=== PATIENT | female | born 1985 | race Caucasian/White ===

== ENCOUNTER 2020-07-25 10:28 | Emergency (ER) | payer MEDICAID ==
[2020-07-25] MEDS ORDERED: Ondansetron 4 MG/2 ML SDV IVPUSH ONE (10:57)
[2020-07-25] MEDS ORDERED: Sodium Chloride 0.9% 10 ML Syringe FLUSH PRN (10:57)
[2020-07-25] MEDS ORDERED: LORazepam 2 MG/ML SDV IVPUSH ONE (10:58)
[2020-07-25] MEDS ORDERED: HYDROmorphone 0.5 MG/0.5 ML Syringe IVPUSH ONE ×2 (10:58→12:23)
--- NOTE | 2020-07-25 12:27 | US ---
Pelvic ultrasound: Multiple real-time images were obtained transvaginally. Comparison: No prior pelvic imaging is available. Uterus is anteverted. Several minimal uterine calcifications are seen. Endometrial thickness is normal at 4 mm. Ovaries show no cysts or solid abnormality. No free fluid is seen. Measurements: Right ovary: 2.9 x 1.8 x 1.9 cm Left ovary: 3.2 x 1.4 x 1.7 cm Uterus: Length 7.4 cm, AP height 3.6 cm, transverse width 4.7 cm Impression: 1. Minimal calcifications within the uterus which are felt to be incidental. 2. Nothing acute is seen on pelvic ultrasound study. Diagnostic code #2
--- NOTE | 2020-07-25 12:45 | EDM.PDOC ---
ED HPI GENERAL MEDICAL PROBLEM - General Chief Complaint: Abdominal Pain Stated Complaint: LOWER ABD PAIN/POST SURGERY 2WEEKS Time Seen by Provider: 07/25/20 10:49 Source of Information: Reports: Patient History Limitations: Reports: No Limitations - History of Present Illness INITIAL COMMENTS - FREE TEXT/NARRATIVE: Patient is a 35-year-old female presenting to the emergency department with complaints of lower abdominal and pelvic pain. She states she had exploratory surgery for chronic pelvic discomfort on 04 July. Last week Friday, she states she picked up her dog and he kicked her in the abdomen and she has been experiencing worsened pain since that time. She describes pain to her umbilical region which is where she has an incision that radiates down into her pelvic area. She is also developed some nausea with a couple episodes of vomiting as well as mild diarrhea since Friday of this week. She is unsure if her MANAGER PHOTO, Dr. Garcia, had found anything with the surgery as she does not have a follow-up until next Friday. She is also concerned with her chronic anxiety. She states she is normally takes clonazepam 0.5 mg, however she left this in [place] and will not be going back there until next week for her appointment. She denies any fever or chills. She did recently start her menstrual period. She denies any vaginal bleeding that occurred in correspondence with when she was kicked in the abdomen. Lower Abdominal Pain Score (Numeric/FACES): 10 - Related Data Allergies Allergy/AdvReac Type Severity Reaction Status Date / Time diphenhydramine Allergy Tremors Verified 04/18/16 11:28 SENIOR GRANTS OFFICER [From Benadryl] ketorolac [From Toradol] Allergy Vomiting Verified 07/25/20 11:06 methotrexate Allergy Cannot Verified 07/25/20 10:43 Remember Penicillins Allergy Hives Verified 04/18/16 11:28 SENIOR GRANTS OFFICER anti inflammatory drugs Allergy Diarrhea Uncoded 04/18/16 11:28 SENIOR GRANTS OFFICER lobster Allergy Swelling Uncoded 04/18/16 11:28 SENIOR GRANTS OFFICER Home Meds: Home Meds Acetaminophen/HYDROcodone [Rifton 325-5 MG] 1 tab PO Q4H PRN #10 tablet 07/25/20 [Rx] oxyCODONE 1 tab PO Q6H PRN 07/25/20 [History] Past Medical History HEENT History: Reports: None Cardiovascular History: Reports: None Respiratory History: Reports: None Gastrointestinal History: Reports: None Genitourinary History: Reports: None MANAGER PHOTO History: Reports: Polycystic Ovaries, Musculoskeletal History: Reports: None Neurological History: Reports: None Psychiatric History: Reports: Anxiety, Depression Endocrine/Metabolic History: Reports: None Hematologic History: Reports: None Oncologic (Cancer) History: Reports: None Dermatologic History: Reports: None - Infectious Disease History Infectious Disease History: Reports: None - Past Surgical History HEENT Surgical History: Reports: Oral Surgery, Tonsillectomy Female Surgical History: Reports: Section, D&C Social & Family History - Family History Family Medical History: No Pertinent Family History Musculoskeletal: Reports: RA - Tobacco Use Tobacco Use Status *Q: Current Every Day Tobacco User Years of Tobacco use: 10 Packs/Tins Daily: 0.3 - Caffeine Use Caffeine Use: Reports: None - Recreational Drug Use Recreational Drug Use: No ED ROS GENERAL - Review of Systems Review Of Systems: See Below Constitutional: Denies: Fever, Chills HEENT: Reports: No Symptoms Respiratory: Reports: No Symptoms. Denies: Shortness of Breath, Cough Cardiovascular: Reports: No Symptoms Endocrine: Reports: No Symptoms GI/Abdominal: Reports: Abdominal Pain (suprapubic and umbilical), Diarrhea, Naus ea, Vomiting : Reports: No Symptoms. Denies: Dysuria, Irregular Menses Musculoskeletal: Reports: No Symptoms Skin: Reports: No Symptoms Neurological: Reports: No Symptoms Psychiatric: Reports: No Symptoms Hematologic/Lymphatic: Reports: No Symptoms Immunologic: Reports: No Symptoms ED EXAM, RENAL/ - Physical Exam Exam: See Below Exam Limited By: No Limitations General Appearance: Alert, WD/WN, No Apparent Distress Respiratory/Chest: No Respiratory Distress, Lungs Clear, Normal Breath Sounds, No Accessory Muscle Use, Chest Non-Tender Cardiovascular: Normal Peripheral Pulses, Regular Rate, Rhythm, No Edema, No Gallop, No JVD, No Murmur, No Rub GI/Abdominal: Normal Bowel Sounds, Soft, No Organomegaly, No Distention, No Abnormal Bruit, No Mass, Tender (mild umbilical with worse suprapubic. No RLQ tenderness, rigidity, or rebound tenderness.) Course - Vital Signs Last Recorded V/S: Last Vital Signs Temp 98.6 F 07/25/20 13:23 Pulse 98 07/25/20 13:23 Resp 16 07/25/20 13:23 BP 107/74 07/25/20 13:23 Pulse Ox 97 07/25/20 13:23 - Orders/Labs/Meds Orders: Active Orders 24 hr Category Date Time Status Peripheral IV Insertion Adult [OM.PC] Stat Oth 07/25/20 10:56 Ordered Labs: Laboratory Tests 07/25/20 07/25/20 07/25/20 Range/Units 11:00 11:00 11:10 WBC 8.17 (3.98-10.04) K/mm3 RBC 4.74 (3.98-5.22) M/mm3 Hgb 14.8 (11.2-15.7) gm/dl Hct 44.6 (34.1-44.9) % MCV 94.1 (79.4-94.8) fl MCH 31.2 (25.6-32.2) pg MCHC 33.2 (32.2-35.5) g/dl RDW Std Deviation 43.0 (36.4-46.3) fL Plt Count 296 (182-369) K/mm3 MPV 9.8 (9.4-12.3) fl Neut % (Auto) 71.8 H (34.0-71.1) % Lymph % (Auto) 20.0 (19.3-51.7) % George % (Auto) 7.5 (4.7-12.5) % Eos % (Auto) 0.4 L (0.7-5.8) Baso % (Auto) 0.2 (0.1-1.2) % Neut # (Auto) 5.87 (1.56-6.13) K/mm3 Lymph # (Auto) 1.63 (1.18-3.74) K/mm3 George # (Auto) 0.61 H (0.24-0.36) K/mm3 Eos # (Auto) 0.03 L (0.04-0.36) K/mm3 Baso # (Auto) 0.02 (0.01-0.08) K/mm3 Sodium (136-145) mEq/L Potassium (3.5-5.1) mEq/L Chloride (98-107) mEq/L Carbon Dioxide (21-32) mEq/L Anion Gap (5-15) BUN (7-18) mg/dL Creatinine (0.55-1.02) mg/dL Est Cr Clr Drug Dosing mL/min Estimated GFR (MDRD) (>60) mL/min BUN/Creatinine Ratio (14-18) Glucose (74-106) mg/dL Calcium (8.5-10.1) mg/dL Total Bilirubin (0.2-1.0) mg/dL AST (15-37) U/L ALT (14-59) U/L Alkaline Phosphatase (46-116) U/L C-Reactive Protein (<1.0) mg/dL Total Protein (6.4-8.2) g/dl Albumin (3.4-5.0) g/dl Globulin gm/dL Albumin/Globulin Ratio (1-2) Urine Color Mellisa H (Yellow) Urine Appearance Slt cloudy H (Clear) Urine pH 6.0 (5.0-8.0) Ur Specific Douglas > or = 1.030 (1.005-1.030) Urine Protein Negative (Negative) Urine Glucose (UA) Negative (Negative) Urine Ketones Trace H (Negative) Urine Occult Blood 3+ H (Negative) Urine Nitrite Negative (Negative) Urine Bilirubin 1+ H (Negative) Urine Urobilinogen 0.2 (0.2-1.0) Ur Leukocyte Esterase Negative (Negative) U Hyaline Cast (Auto) 5-10 H (0-5) /lpf Urine RBC 5-10 H (0-5) /hpf Urine WBC 5-10 H (0-5) /hpf Ur Epithelial Cells 10-20 H (0-5) /hpf Amorphous Sediment Moderate H (NOT SEEN) /hpf Urine Bacteria Many H (FEW) /hpf Urine Mucus Moderate H (FEW) /hpf Urine HCG, Qual Negative (NEGATIVE) 07/25/20 Range/Units 11:10 WBC (3.98-10.04) K/mm3 RBC (3.98-5.22) M/mm3 Hgb (11.2-15.7) gm/dl Hct (34.1-44.9) % MCV (79.4-94.8) fl MCH (25.6-32.2) pg MCHC (32.2-35.5) g/dl RDW Std Deviation (36.4-46.3) fL Plt Count (182-369) K/mm3 MPV (9.4-12.3) fl Neut % (Auto) (34.0-71.1) % Lymph % (Auto) (19.3-51.7) % George % (Auto) (4.7-12.5) % Eos % (Auto) (0.7-5.8) Baso % (Auto) (0.1-1.2) % Neut # (Auto) (1.56-6.13) K/mm3 Lymph # (Auto) (1.18-3.74) K/mm3 George # (Auto) (0.24-0.36) K/mm3 Eos # (Auto) (0.04-0.36) K/mm3 Baso # (Auto) (0.01-0.08) K/mm3 Sodium 144 (136-145) mEq/L Potassium 3.7 (3.5-5.1) mEq/L Chloride 105 (98-107) mEq/L Carbon Dioxide 23 (21-32) mEq/L Anion Gap 19.7 H (5-15) BUN 14 (7-18) mg/dL Creatinine 0.7 (0.55-1.02) mg/dL Est Cr Clr Drug Dosing 102.86 mL/min Estimated GFR (MDRD) > 60 (>60) mL/min BUN/Creatinine Ratio 20.0 H (14-18) Glucose 107 H (74-106) mg/dL Calcium 9.9 (8.5-10.1) mg/dL Total Bilirubin 0.7 (0.2-1.0) mg/dL AST 13 L (15-37) U/L ALT 20 (14-59) U/L Alkaline Phosphatase 60 (46-116) U/L C-Reactive Protein <0.2 (<1.0) mg/dL Total Protein 8.4 H (6.4-8.2) g/dl Albumin 4.2 (3.4-5.0) g/dl Globulin 4.2 gm/dL Albumin/Globulin Ratio 1.0 (1-2) Urine Color (Yellow) Urine Appearance (Clear) Urine pH (5.0-8.0) Ur Specific Douglas (1.005-1.030) Urine Protein (Negative) Urine Glucose (UA) (Negative) Urine Ketones (Negative) Urine Occult Blood (Negative) Urine Nitrite (Negative) Urine Bilirubin (Negative) Urine Urobilinogen (0.2-1.0) Ur Leukocyte Esterase (Negative) U Hyaline Cast (Auto) (0-5) /lpf Urine RBC (0-5) /hpf Urine WBC (0-5) /hpf Ur Epithelial Cells (0-5) /hpf Amorphous Sediment (NOT SEEN) /hpf Urine Bacteria (FEW) /hpf Urine Mucus (FEW) /hpf Urine HCG, Qual (NEGATIVE) Meds: Medications Discontinued Medications Generic Name Dose Route Start Last Admin Trade Name Freq PRN Reason Stop Dose Admin Clonazepam 0.5 mg 07/25/20 13:05 07/25/20 13:22 Clonazepam 0.5 Mg Tab PO 07/25/20 13:06 0.5 mg ONETIME ONE Administration Hydromorphone HCl 0.5 mg 07/25/20 10:58 07/25/20 11:17 Hydromorphone 0.5 Mg/0.5 Ml Syringe IVPUSH 07/25/20 10:59 0.5 mg ONETIME ONE Administration Hydromorphone HCl 0.5 mg 07/25/20 12:23 07/25/20 12:31 Hydromorphone 0.5 Mg/0.5 Ml Syringe IVPUSH 07/25/20 12:24 0.5 mg ONETIME ONE Administration Lorazepam 0.5 mg 07/25/20 10:58 07/25/20 11:13 Lorazepam 2 Mg/Ml Sdv IVPUSH 07/25/20 10:59 0.5 mg ONETIME ONE Administration Ondansetron HCl 4 mg 07/25/20 10:57 07/25/20 11:15 Ondansetron 4 Mg/2 Ml Sdv IVPUSH 07/25/20 10:58 4 mg ONETIME ONE Administration Sodium Chloride 10 ml 07/25/20 10:57 07/25/20 11:10 Sodium Chloride 0.9% 10 Ml Syringe FLUSH 10 ml ASDIRECTED PRN Administration Keep Vein Open - Re-Assessments/Exams Free Text/Narrative Re-Assessment/Exam: Patient is a 35-year-old female presenting to the emergency department with complaints of pelvic and umbilical pain. She had an exploratory laparoscopy completed on July 04 for evaluation of chronic pelvic pain. She is unsure with the results of this were as she has not had a follow-up appointment till next week. Last week, she was lifting her dog and he kicked her in her incision site on her umbilicus and she has been experiencing increased discomfort since that time. She also complains of some nausea, vomiting, and diarrhea since Friday. The symptoms are fairly mild. I have ordered blood work, and a transvaginal ultrasound. I will give her Dilaudid 0.5 mg IV for pain, Ativan 0.5 mg IV for anxiety, and Zofran 4 mg for nausea. P 07/25/20 1250 Hematology is grossly unremarkable. Urinalysis was negative for infection and was likely contaminated with her menstrual blood. Transvaginal ultrasound showed no acute abnormalities. I will send patient a short prescription of hydrocodone for pain recommend that she went as scheduled next week. Offered prescription for Zofran and she declined. Patient reports not having any clonazepam for her anxiety, however review of the PLATING EQUIPMENT TENDER shows that she was prescribed 84 tablets of clonazepam 0.5 mg on July 11. She states that these are in [place] that she would not be there till next week. Discussed with patient that I am unable to prescribe any additional medications, however I will give her 1 prior to discharge. Discharge instructions as documented Departure - Departure Time of Disposition: 12:57 Disposition: Home, Self-Care 01 Condition: Good Clinical Impression: Pelvic pain - Discharge Information *PRESCRIPTION DRUG MONITORING PROGRAM REVIEWED*: No *COPY OF PRESCRIPTION DRUG MONITORING REPORT IN PATIENT ANGELA: No Prescriptions: Acetaminophen/HYDROcodone [Rifton 325-5 MG] 1 tab PO Q4H PRN #10 tablet PRN Reason: Pain Instructions: Pelvic Pain, Female, [id number] Referrals: PCP,Not In Area [Primary Care Provider] - Forms: ED Department Discharge Additional Instructions: You were seen in the emergency department today for lower abdominal pelvic pain that began after you were kicked in the stomach by her dog on Friday of last week as well as nausea, vomiting, diarrhea began on Friday. Work-up included blood work, urinalysis, and a pelvic ultrasound. Results of your work-up were found to be normal. As we discussed, the lower abdominal and pelvic pain you are experiencing is likely related to aggravating your postop discomfort. It is also possible that you could be suffering from a viral gastroenteritis given your nausea vomiting and diarrhea which just began this again. You declined a prescription for Zofran for nausea. I have sent a prescription for Rifton for pain. Recommend routine Tylenol use. For pain not relieved by Tylenol, you may take 1 Rifton. Do not work or drive for 12 hours after taking this medication as it can be sedating. Ensure that you are not taking in more than 4000 mg of Tylenol from all sources in a given 24-hour period. Follow-up with your MANAGER PHOTO as scheduled next week. Return to ER for any new or worsening symptoms of concern. Sepsis Event Note (ED) - Evaluation Sepsis Screening Result: No Definite Risk - Focused Exam Vital Signs: Vital Signs Temp Pulse Resp BP Pulse Ox 07/25/20 13:23 98.6 F 98 16 107/74 97 07/25/20 11:19 98.8 F 100 16 98/79 98 07/25/20 10:36 98.2 F 112 H 18 117/68 99 - My Orders Last 24 Hours: My Active Orders 07/25/20 10:56 Peripheral IV Insertion Adult [OM.PC] Stat - Assessment/Plan Last 24 Hours: My Active Orders 07/25/20 10:56 Peripheral IV Insertion Adult [OM.PC] Stat
[2020-07-25] MEDS ORDERED: ClonazePAM 0.5 MG Tab PO ONE (13:05)
[2020-07-25 13:25] VITALS: BP 107/74; PULSE 98
== END 2020-07-25 13:25 | disposition home or self-care (01) ==
LOC: JD.ED 10:28
DX: R10.2 Pelvic and perineal pain (principal); Z88.8 Allergy status to other drugs, medicaments and biological substances; Z88.0 Allergy status to penicillin; Z72.0 Tobacco use
CPT/HCPCS: 36415; 76830; 80053; 81001; 81025; 85025; 86140; 96374; 96375; 96376; 99284; A9270; J1170; J2060; J2405

== ENCOUNTER 2020-08-07 23:44 | Emergency (ER) | payer MEDICAID ==
[2020-08-08 00:02] VITALS: BP 114/68; PULSE 94
--- NOTE | 2020-08-08 00:22 | EDM.PDOC ---
ED HPI GENERAL MEDICAL PROBLEM - General Chief Complaint: Abdominal Pain Stated Complaint: ABDOMINAL PAIN Time Seen by Provider: 08/07/20 23:57 Source of Information: Reports: Patient, Significant Other (Boyfriend) History Limitations: Reports: Uncooperative (Patient is hostile) - History of Present Illness INITIAL COMMENTS - FREE TEXT/NARRATIVE: Ms. Guo is a 35-year-old woman who, medical records indicate, was seen in this ED on 07/25/2020, with a complaint at that time of lower abdominal and pelvic pain that she reported occurred after she had picked her dog up and he kicked her in her abdomen. She reported that she had undergone laparoscopic pelvic surgery on 07/04/2020. She stated that the pain was in her umbilical region where one of her laparoscopic incisions was, radiating down into her pelvic area. She reported having some nausea with a couple of episodes of vomiting and some mild diarrhea. Additionally, she reported that she was experiencing significant anxiety, having forgotten to bring her prescribed clonazepam from [place], [place], stating that she would be returning to [place] the following week. Medically stable, afebrile, saturating 97% on room air. On physical examination, she reported mild tenderness to her umbilical area, and increased tenderness suprapubically. Her abdomen was soft with normoactive bowel sounds. Work-up included a CBC, CMP, CRP, urinalysis, urine test, and a transvaginal ultrasound. Her entire work-up was unremarkable. She was given a total of 1 mg of IV Dilaudid, 0.5 mg IV lorazepam, 0.5 mg oral clonazepam, and IV Zofran before being discharged home with a prescription for Sebring 5/325 #10. She was instructed to follow-up with her AUTOMATIC GRINDER OPERATOR as previously scheduled, the following week. The patient then returned to this ED just yesterday, 08/06/2020, stating that she had severe abdominal pain that had started 2 to 3 days prior, worse yesterday. She reported having nausea without vomiting, and also watery diarrhea. Recent fever. She was again found to be hemodynamically stable, afebrile, saturating 96% on room air. Her physical exam was notable for mild diffuse right and left- sided abdominal tenderness, along with mild right CVA tenderness. Work-up included a CBC, CMP, urinalysis, and flat plate abdominal x-ray, all of which were unremarkable. She was given a total of 2 mg of IV Dilaudid, 1.5 mg of IV lorazepam, Zofran, and, for reasons unclear, 100 mg of oral nitrofurantoin before being discharged home with a prescription for lorazepam 0.5 mg po BID #10 and a referral to our clinic for follow-up. The patient now returns to the ED stating that she has had excruciating generalized abdominal pain for the past 4 days. She states that her pain is made worse with any movement. She reports having nausea, but no vomiting. No recent fever, constipation, diarrhea, or urinary symptoms. She also reports feeling very anxious. The patient acknowledges that she has not followed up from other of her ED visits. Here in the ED tonight, the patient is again found to be hemodynamically stable, afebrile, saturating 98% on room air. She is impatient and somewhat hostile, not wanting to answer my questions, however, she does not appear to be in any acute distress. The patient's PCP is in [place], [place]. Her Fashion Buying Internship is in [place], [place]. Her Petroleum Geology Faculty Member is in [place], [place]. Abdomen Pain Score (Numeric/FACES): 9 - Related Data Allergies Allergy/AdvReac Type Severity Reaction Status Date / Time methotrexate Allergy Cannot Verified 08/08/20 00:02 Remember Penicillins Allergy Hives Verified 08/08/20 00:02 diphenhydramine AdvReac Tremors Verified 08/08/20 00:02 [From Benadryl] ketorolac [From Toradol] AdvReac Vomiting Verified 08/08/20 00:02 lobster Allergy Swelling Uncoded 08/08/20 00:02 anti inflammatory drugs AdvReac Diarrhea Uncoded 08/08/20 00:02 Home Meds: Home Meds LORazepam [Ativan] 0.5 mg PO BID #10 tablet 08/06/20 [Rx] Nortriptyline 50 mg PO BEDTIME 08/08/20 [History] lamoTRIgine [Lamotrigine] 100 mg PO BEDTIME 08/08/20 [History] Past Medical History Musculoskeletal History: Reports: RA Psychiatric History: Reports: Anxiety, Depression, Other (See Below) (Fibromyalgia) - Infectious Disease History Infectious Disease History: Reports: Chicken Pox, Measles, MRSA - Past Surgical History HEENT Surgical History: Reports: Oral Surgery, Tonsillectomy Female Surgical History: Reports: Section (x 3), D&C, Other (See Below) (Bilaeral laparoscopic salpingectomy 07/04/2020) Social & Family History - Tobacco Use Tobacco Use Status *Q: Current Every Day Tobacco User Years of Tobacco use: 24 Packs/Tins Daily: 0.5 - Caffeine Use Caffeine Use: Reports: Coffee, Soda, Tea - Recreational Drug Use Recreational Drug Use: No ED ROS GENERAL - Review of Systems Review Of Systems: Comprehensive ROS is negative, except as noted in HPI. ED EXAM, GI/ABD - Physical Exam Exam: See Below Exam Limited By: No Limitations General Appearance: Alert, WD/WN, No Apparent Distress Eyes: Bilateral: Normal Appearance, EOMI Ears: Normal External Exam, Hearing Grossly Normal Nose: Normal Inspection Throat/Mouth: Normal Inspection, Normal Lips, Normal Voice, No Airway Compromise Head: Atraumatic, Normocephalic Neck: Normal Inspection, Full Range of Motion Respiratory/Chest: No Respiratory Distress, Lungs Clear, Normal Breath Sounds, No Accessory Muscle Use Cardiovascular: Normal Peripheral Pulses, Regular Rate, Rhythm, No Edema, No Gallop, No JVD, No Murmur, No Rub GI/Abdominal Exam: Normal Bowel Sounds, Soft, No Organomegaly, No Distention, No Abnormal Bruit, No Mass, Other (The patient withdrew, indicating extreme tenderness to palpation, however, did not respond to auscultatio with my stethoscope) Back Exam: Normal Inspection, Full Range of Motion, NT Extremities: Normal Inspection, Normal Range of Motion, No Pedal Edema, Normal Capillary Refill Neurological: Alert, Oriented, Normal Cognition, No Motor/Sensory Deficits Psychiatric: Flat Affect Skin Exam: Warm, Dry, Intact, Normal Color, No Rash Course - Vital Signs Last Recorded V/S: Last Vital Signs Temp 36.6 C 08/08/20 00:00 Pulse 94 08/08/20 00:00 Resp 16 08/08/20 00:00 BP 114/68 08/08/20 00:00 Pulse Ox 98 08/08/20 00:00 - Re-Assessments/Exams Free Text/Narrative Re-Assessment/Exam: 08/08/20 00:14 As above, the patient was seen in this ED on 08/11/2020 with a complaint of generalized abdominal pain after her dog had kicked her in the abdomen, following laparoscopic salpingectomy on 07/04/2020. Her work-up, which included a transvaginal ultrasound, was unremarkable. She was given numerous pain medications, and discharged home with a prescription for 10 tablets of Sebring, and instructions to follow-up with her AUTOMATIC GRINDER OPERATOR, which she tells me today she did not. She was then seen again just yesterday, for the same complaint, along with nausea and some diarrhea, but no vomiting. Again a work-up, this time including an abdominal x-ray, was unremarkable. She was again given numerous pain medications and anxiolytics, and discharged home with a prescription for 10 tablets of lorazepam and instructions to follow-up. Again, she has not. She now returns the ED with the same complaint, telling me that it is excruciating, especially with any movement. While her abdomen is soft with normoactive bowel sounds, she indicated that her abdomen was too tender to palpate. Since she just had a negative work-up yesterday, I recommended a CT of the abdomen and pelvis, along with some IV fluid and IV Zofran, however, the patient requested both pain medication and anti-anxiety medication. I offered Toradol, which she refused. I explained that because she has had two negative work-ups thus far I could not offer opioid pain medication unless we found something abnormal that would justify such treatment. The patient responded "Well I guess I'll just suffer then". I had not even entered the orders before the patient left the ED without waiting for discharge instructions, telling her nurse "Well, if I'm not getting pain meds, then I'm leaving". The [place] VALVE TECHNICIAN indicates that the patient has 125 prescriptions for controlled substances over the past 3 years, prescribed by 15 different prescribers, including a prescription for 15 tablets of Sebring 5/325, prescribed by Dr. Belgica Garcia, a Fashion Buying Internship in [place], [place], on 07/27/2020, 2 days after she was initially seen in this ED, yet the patient told me that she had not seen anyone outside of this ED. There is no question but that the patient is malingering and drug seeking. Departure - Departure Time of Disposition: 00:14 Disposition: Home, Self-Care 01 Condition: Good Clinical Impression: Malingering, Drug-seeking behavior - Discharge Information *PRESCRIPTION DRUG MONITORING PROGRAM REVIEWED*: No *COPY OF PRESCRIPTION DRUG MONITORING REPORT IN PATIENT ANGELA: No Referrals: PCP,Not In Area [Primary Care Provider] - Forms: ED Department Discharge Sepsis Event Note (ED) - Evaluation Sepsis Screening Result: No Definite Risk - Focused Exam Vital Signs: Vital Signs Temp Pulse Resp BP Pulse Ox 08/08/20 00:00 36.6 C 94 16 114/68 98
== END 2020-08-08 00:15 | disposition home or self-care (01) ==
LOC: JD.ED 23:44
DX: Z76.5 Malingerer [conscious simulation] (principal); Z88.8 Allergy status to other drugs, medicaments and biological substances; Z88.0 Allergy status to penicillin; Z88.6 Allergy status to analgesic agent; Z72.0 Tobacco use; Z79.899 Other long term (current) drug therapy
CPT/HCPCS: 99283